=== PATIENT | male | born 1945 | race Caucasian/White ===

== ENCOUNTER → 2016-12-17 | Outpatient (CLI) | payer OTHER ==
[2016-12-17 08:24] LABS: CHLORIDE,CL 104 mmol/L (98-110); SODIUM,NA 139 mmol/L (136-146)
== END ==
LOC: MW.CHRC 07:25
PROVIDERS: ATTEND Family Medicine
DX: I10 Essential (primary) hypertension (principal); E03.9 Hypothyroidism, unspecified; E11.9 Type 2 diabetes mellitus without complications; E78.00 Pure hypercholesterolemia, unspecified
CPT/HCPCS: 36415; 80053; 80061; 82044; 83036; 84443

== ENCOUNTER 2022-10-15 08:00 | Emergency (ER) | payer OTHER ==
[2022-10-15] MEDS ORDERED: Adenosine 6 MG/2 ML SDV ONE (08:09)
[2022-10-15] MEDS ORDERED: Sodium Chloride 0.9% 2.5 ML Syringe FLUSH PRN (08:11)
[2022-10-15] MEDS ORDERED: Sodium Chloride 0.9% 10 ML Syringe FLUSH PRN (08:11)
[2022-10-15 08:46] LABS: CARBON DIOXIDE,CO2 22.6 mmol/L (21.0-32.0); POTASSIUM,K 3.3 mmol/L (3.5-5.1)
[2022-10-15] MEDS ORDERED: Potassium Chloride 10% 20 MEQ/15 ML Soln 30 ML UD Cup PO ONE (09:05)
[2022-10-15] MEDS ORDERED: Magnesium Oxide 400 MG Tab PO ONE (09:05)
[2022-10-15] MEDS ORDERED: Potassium Chloride 20 MEQ Tab.ER PO ONE (09:16)
[2022-10-15 09:34] VITALS: BP 135/80; PULSE 96
== END 2022-10-15 09:38 | disposition home or self-care (01) ==
LOC: MW.ED 08:00
DX: I47.1 Supraventricular tachycardia (principal); E87.6 Hypokalemia; E11.9 Type 2 diabetes mellitus without complications; I10 Essential (primary) hypertension
CPT/HCPCS: 36415; 80053; 83735; 85025; 93005; 99284; A9270; J3490; 93010; 99283